=== PATIENT | female | born 1940 | race American Indian/Alaskan Native ===

== ENCOUNTER 2016-09-24 22:48 | Emergency (ER) | payer MEDICARE ==
[2016-09-24 23:06] VITALS: BP 132/75
[2016-09-24 23:52] LABS: Hematocrit 38.3 % (30.3-42.9); Hemoglobin 12.7 gm/dl (10.1-14.3); Mean Corpuscular HGB Conc 33 % (30-34); Mean Corpuscular Hemoglobin 29 pg (28-32); Mean Corpuscular Volume 87 fl (79-97); Platelet Count 226 K/mm3 (140-440); Red Blood Count 4.39 M/mm3 (3.65-5.03); White Blood Count 7.4 K/mm3 (4.5-11.0)
[2016-09-25 00:13] LABS: Alanine Aminotransferase 13 units/L (7-56); Alkaline Phosphatase 98 units/L (35-129); Anion Gap 19 mmol/L; Blood Urea Nitrogen 12 mg/dL (7-17); Calcium 9.5 mg/dL (8.4-10.2); Carbon Dioxide 22 mmol/L (22-30); Chloride 99.7 mmol/L (98-107); Glucose 116 mg/dL (65-100); Potassium 4.2 mmol/L (3.6-5.0); Sodium 136 mmol/L (137-145)
--- NOTE | 2016-09-28 08:01 | ED Elopement Review ---
ED Pt Elopement review - Results review Lab results: Laboratory Tests 09/24/16 09/24/16 23:31 23:31 WBC 7.4 RBC 4.39 Hgb 12.7 Hct 38.3 MCV 87 MCH 29 MCHC 33 RDW 13.0 L Plt Count 226 Lymph % (Auto) 35.9 H Kenton % (Auto) 9.0 H Eos % (Auto) 3.0 Baso % (Auto) 1.0 Lymph # 2.6 Kenton # 0.7 Eos # 0.2 Baso # 0.1 Seg Neutrophils % 51.1 Seg Neutrophils # 3.8 Sodium 136 L Potassium 4.2 Chloride 99.7 Carbon Dioxide 22 Anion Gap 19 BUN 12 Creatinine 0.6 L Estimated GFR > 60 BUN/Creatinine Ratio 20.00 Glucose 116 H Calcium 9.5 Total Bilirubin 0.30 AST 23 ALT 13 Alkaline Phosphatase 98 Troponin T < 0.010 Total Protein 8.0 Albumin 4.0 Albumin/Globulin Ratio 1.0 - Call Back decision Pt Call Back Decision: No action required
== END 2016-09-25 00:22 | disposition left against medical advice (07) ==
LOC: ED 22:48
DX: M54.2 Cervicalgia (principal); M79.601 Pain in right arm; M79.604 Pain in right leg; Z53.21 Procedure and treatment not carried out due to patient leaving prior to being seen by health care provider
CPT/HCPCS: 36415; 80053; 84484; 85025; 93005; 93010

== ENCOUNTER 2017-12-29 20:43 | Emergency (ER) | payer MEDICARE ==
[2017-12-29 21:10] VITALS: BP 150/63
--- NOTE | 2017-12-29 22:28 | Emergency Department Report ---
ED Extremity Problem HPI - General Chief complaint: Extremity Problem,Nontraumatic Stated complaint: LT KNEE PAIN Time Seen by Provider: 12/29/17 22:27 Source: patient Mode of arrival: Ambulatory Limitations: No Limitations - History of Present Illness Initial comments: [age] after [place] female born him with her daughter for complaint of left knee pain that radiates up into her thigh and buttocks. Patient denies any trauma. Patient reports that she was seen at urgent care was given pain medicine for neuropathy which she reports has not helped with the pain. This isn't gone on for the past month. Patient reports that she's been taking ibuprofen 600 mg and another medication that sounds like Neurontin 200 mg twice a day. Patient denies any numbness or coldness to her toes or feet. She reports that the pain is achy. He reports that the mother doesn't want to get out the bed secondary to pain. Daughter is concerned that she's lost 10 pounds. MD Complaint: extremity pain Severity scale (0 -10): 8 - Related Data Previous Rx's Medication Instructions Recorded Last Taken Type traMADol [Ultram 50 MG tab] 50 mg PO Q6HR #12 tablet 12/29/17 Unknown Rx Allergies Allergy/AdvReac Type Severity Reaction Status Date / Time No Known Allergies Allergy Unverified 05/23/15 07:26 ED Review of Systems ROS: Stated complaint: LT KNEE PAIN Other details as noted in HPI Comment: All other systems reviewed and negative Musculoskeletal: arthralgia (left knee posterior pain) ED Past Medical Hx - Past Medical History Hx Hypertension: Yes Hx Diabetes: Yes - Surgical History Past Surgical History?: No - Social History Smoking Status: Never Smoker Substance Use Type: None - Medications Home Medications: Home Medications Medication Instructions Recorded Confirmed Last Taken Type traMADol [Ultram 50 MG tab] 50 mg PO Q6HR #12 tablet 12/29/17 Unknown Rx ED Physical Exam - General Limitations: No Limitations General appearance: alert, in no apparent distress - Head Head exam: Present: atraumatic, normocephalic - Eye Eye exam: Present: EOMI - ENT ENT exam: Present: mucous membranes moist - Neck Neck exam: Present: full ROM - Expanded Lower Extremity Exam Left Hip exam: Present: normal inspection, full ROM. Absent: tenderness, swelling Knee exam: Present: normal inspection, full ROM. Absent: tenderness, swelling, abrasion, ecchymosis, deformity, crepidus, erythema, effusion, pain/laxity with valgus, pain/laxity with varus Lower Leg exam: Present: normal inspection, full ROM. Absent: tenderness, swelling, palpable cord, Shonna's sign Ankle exam: Present: normal inspection, full ROM. Absent: tenderness, swelling Neuro vascular tendon exam: Present: no vascular compromise. Absent: abnormal cap refill - Neurological Exam Neurological exam: Present: alert, oriented X3 - Psychiatric Psychiatric exam: Present: normal affect, normal mood - Skin Skin exam: Present: warm, dry, intact, normal color. Absent: rash ED Course Vital Signs 12/29/17 12/29/17 12/29/17 20:59 21:06 22:52 Temperature 98.6 F 98.6 F Pulse Rate 73 73 Respiratory 16 16 18 Rate Blood Pressure 150/63 Blood Pressure 150/83 [Right] O2 Sat by Pulse 100 100 Oximetry ED Medical Decision Making - Radiology Data Radiology results: report reviewed, image reviewed FINAL REPORT EXAM: XR HIP 2-3V LT HISTORY: left lef pain TECHNIQUE: Frontal view of the pelvis and both hips and frog-lateral view left hip Comparison: None FINDINGS: There is no evidence of fracture or subluxation. The hip joints appear to be maintained. There is degenerative change of the lower lumbar spine and of the pubic symphysis. The soft tissues are unremarkable. IMPRESSION: 1. No evidence of fracture or subluxation. Transcribed By: ED Dictated By: MERVIN ALMAGUER MD Electronically Authenticated By: MERVIN ALMAGUER MD Signed Date/Time: 12/29/172321 DD/ 21 TD/TT: 12/29/172321 - Medical Decision Making Patient has been evaluated by this provider fast track. Trauma at all 50 mg given for pain management. X-ray of the left knee and left hip just has shows some degenerative changes. We'll discharge patient on trauma at all and have her follow back up with her primary care provider. Critical care attestation.: If time is entered above; I have spent that time in minutes in the direct care of this critically ill patient, excluding procedure time. ED Disposition Clinical Impression: Posterior left knee pain Disposition: DC-01 TO HOME OR SELFCARE Is pt being admited?: No Does the pt Need Aspirin: No Condition: Stable Instructions: Lumbar Radiculopathy (ED) Additional Instructions: Take pain medication as needed. Please follow up with her primary care provider for further evaluation. All x-rays were negative. Prescriptions: traMADol [Ultram 50 MG tab] 50 mg PO Q6HR #12 tablet Referrals: PRIMARY CARE,MD [Primary Care Provider] - 3-5 Days Your, Provider [Other] - 3-5 Days Forms: Accompanied Note
[2017-12-29] MEDS ORDERED: ULTRAM PO ONE (22:47)
--- NOTE | 2017-12-29 23:22 | XRay Report ---
FINAL REPORT EXAM: XR HIP 2-3V LT HISTORY: left lef pain TECHNIQUE: Frontal view of the pelvis and both hips and frog-lateral view left hip Comparison: None FINDINGS: There is no evidence of fracture or subluxation. The hip joints appear to be maintained. There is degenerative change of the lower lumbar spine and of the pubic symphysis. The soft tissues are unremarkable. IMPRESSION: 1. No evidence of fracture or subluxation.
--- NOTE | 2017-12-29 23:26 | XRay Report ---
FINAL REPORT EXAM: XR KNEE 1-2V LT HISTORY: knee pain hx/o uk cyts TECHNIQUE: Frontal and lateral views left knee Comparison: None FINDINGS: There is no evidence of fracture or subluxation. There is degenerative change of the patellofemoral joint with joint space loss and osteophyte formation. The soft tissues are notable for atherosclerotic vascular calcification. IMPRESSION: 1. Evidence of degenerative change patellofemoral joint. 2. Atherosclerotic vascular calcification. 3. No evidence of fracture or subluxation.
== END 2017-12-29 23:47 | disposition home or self-care (01) ==
LOC: ED 20:43
DX: M25.562 Pain in left knee (principal); I10 Essential (primary) hypertension; E11.9 Type 2 diabetes mellitus without complications
CPT/HCPCS: 99283

== ENCOUNTER 2021-07-08 19:52 | Emergency (ER) | payer MEDICARE ==
[2021-07-08 20:35] VITALS: BP 131/86
--- NOTE | 2021-07-08 21:27 | Cat Scan Report ---
CT head/brain wo con INDICATION / CLINICAL INFORMATION: 81 years Female; fall, head injury. TECHNIQUE: Routine CT head without contrast. All CT scans at this location are performed using CT dos e reduction for ALARA by means of automated exposure control. COMPARISON: None. FINDINGS: BRAIN / INTRACRANIAL CONTENTS: No acute hemorrhage, mass effect, midline shift, hydrocephalus, or acu te, large territorial infarct. Mild, diffuse cerebral and cerebellar atrophy. Atrophy may be greatest in the parietal lobes. Moderat e to marked degree of hippocampal atrophy suggested bilaterally. There are mild areas of decreased attenuation in the white matter of the cerebral hemispheres. These are nonspecific findings and may be related to microangiopathy (hypertension, diabetes, atheroscleros is), given the patient's age. It might be difficult to evaluate for small areas of ischemia without d iffusion imaging by MRI. CRANIOCERVICAL JUNCTION: No significant abnormality. ORBITS: No significant abnormality of visualized orbits. SINUSES / MASTOIDS: There is partial opacification of the right sphenoid sinus with an air-fluid leve l noted. Mild mucosal thickening in the ethmoids. ADDITIONAL FINDINGS: Poor dentition noted. Atherosclerotic disease is seen in the anterior circulation. IMPRESSION: 1. No focal mass, hemorrhage, hydrocephalus, or acute, large territorial infarct. 2. Sinus disease, as described above. Signer Name: Riley Connors MD, III Signed: 07/08/2021 9:23 PM Workstation Name: [email or web address]
--- NOTE | 2021-07-08 21:31 | Cat Scan Report ---
CT cervical spine wo con INDICATION / CLINICAL INFORMATION: 81 years Female; fall, head injury, dementia. TECHNIQUE: Axial CT images of the cervical spine were obtained. Sagittal and coronal reformatted images were pr oduced. All CT scans at this location are performed using CT dose reduction for ALARA by means of aut omated exposure control. COMPARISON: None available. FINDINGS: POST-SURGICAL CHANGES: None. ALIGNMENT: No significant abnormality. VERTEBRAE: No signs of fracture. Vertebral bodies are grossly normal in height throughout. Osseous foraminal narrowing seen on the left at C3-4, C4-5, and C5-6 related uncinate facet hypertrop hy. Similar findings on the right at C3-4, C4-5, and C5-6. Mild to moderate facet hypertrophy seen at multiple levels. Most marked finding appears be on the rig ht at C4-5 and on the left at C3-4. INTRAVERTEBRAL DISCS: Disc spaces are fairly well-maintained throughout without significant canal shilo nosis. PARASPINAL SOFT TISSUES: No significant abnormality. ADDITIONAL FINDINGS: Air-fluid level seen in the partially opacified right sphenoid sinus. Mild atherosclerotic disease seen in the internal carotid arteries. IMPRESSION: 1. No signs of acute bony trauma to the cervical spine. Signer Name: Riley Connors MD, III Signed: 07/08/2021 9:27 PM Workstation Name: [id number]
--- NOTE | 2021-07-08 21:57 | Emergency Department Report ---
ED Head Trauma HPI - General Chief complaint: Head Injury Stated complaint: FALL/HEAD PAIN AND RT KNEE PAIN Source: patient, family Mode of arrival: Ambulatory Limitations: No Limitations - History of Present Illness Initial comments: 81-year-old female accompanied by daughter presents to the ED after slip and fall down stairs. Patient has a hematoma to the back of her head. States that she slipped and failed. She is alert and oriented to self and place. States that this is her normal mental status. Patient denies any pain at present. Daughter denies any nausea vomiting at present. No abnormal behavior noted. Patient ambulatory without any difficulty. - Related Data Previous Rx's Medication Instructions Recorded Last Taken Type traMADoL [Ultram 50 MG tab] 50 mg PO Q6HR #12 tablet 12/29/17 Unknown Rx Allergies/Adverse reactions: Allergies Allergy/AdvReac Type Severity Reaction Status Date / Time No Known Allergies Allergy Unverified 05/23/15 07:26 ED Review of Systems ROS: Stated complaint: FALL/HEAD PAIN AND RT KNEE PAIN Other details as noted in HPI Constitutional: denies: chills, fever Eyes: denies: eye pain, eye discharge, vision change ENT: denies: ear pain, throat pain Respiratory: denies: cough, shortness of breath, wheezing Cardiovascular: denies: chest pain, palpitations Endocrine: no symptoms reported Gastrointestinal: denies: abdominal pain, nausea, diarrhea Genitourinary: denies: urgency, dysuria, discharge Musculoskeletal: denies: back pain, joint swelling, arthralgia Skin: denies: rash, lesions Neurological: denies: headache, weakness, paresthesias Psychiatric: denies: anxiety, depression Hematological/Lymphatic: denies: easy bleeding, easy bruising ED Past Medical Hx - Past Medical History Previous Medical History?: Yes Hx Hypertension: Yes Hx Diabetes: Yes Additional medical history: Alzeimer's - Social History Smoking Status: Never Smoker Substance Use Type: None - Medications Home Medications: Home Medications Medication Instructions Recorded Confirmed Last Taken Type traMADoL [Ultram 50 MG tab] 50 mg PO Q6HR #12 tablet 12/29/17 Unknown Rx ED Physical Exam - General Limitations: No Limitations General appearance: alert, in no apparent distress - Head Head exam: Present: atraumatic, normocephalic - Eye Eye exam: Present: normal appearance - ENT ENT exam: Present: mucous membranes moist - Neck Neck exam: Present: normal inspection - Respiratory Respiratory exam: Present: normal lung sounds bilaterally. Absent: respiratory distress - Cardiovascular Cardiovascular Exam: Present: regular rate, normal rhythm. Absent: systolic murmur, diastolic murmur, rubs, gallop - GI/Abdominal GI/Abdominal exam: Present: soft, normal bowel sounds - Extremities Exam Extremities exam: Present: normal inspection - Back Exam Back exam: Present: normal inspection - Neurological Exam Neurological exam: Present: alert, oriented X3 - Psychiatric Psychiatric exam: Present: normal affect, normal mood - Skin Skin exam: Present: warm, dry, intact, normal color. Absent: rash ED Course Vital Signs 07/08/21 20:32 Temperature 97.5 F L Pulse Rate 79 Respiratory 15 Rate Blood Pressure 131/86 [Right] O2 Sat by Pulse 98 Oximetry - Radiology Data [facility] [address] [place] [address] Cat Scan Report Signed Patient: ANGEL CARO MR#: [id number] 79 : 1940 Acct:[id number] Age/Sex: 81 / F ADM Date: 07/08/21 Loc: ED Attending Dr: Ordering Physician: JOSETTE SORIA DO Date of Service: 07/08/21 Procedure(s): CT head/brain wo con Accession Number(s): [id number] cc: JOSETTE SORIA DO CT head/brain wo con INDICATION / CLINICAL INFORMATION: 81 years Female; fall, head injury. TECHNIQUE: Routine CT head without contrast. All CT scans at this location are performed using CT dose reduction for ALARA by means of automated exposure control. COMPARISON: None. FINDINGS: BRAIN / INTRACRANIAL CONTENTS: No acute hemorrhage, mass effect, midline shift, hydrocephalus, or acute, large territorial infarct. Mild, diffuse cerebral and cerebellar atrophy. Atrophy may be greatest in the parietal lobes. Moderate to marked degree of hippocampal atrophy suggested bilaterally. There are mild areas of decreased attenuation in the white matter of the cerebral hemispheres. These are nonspecific findings and may be related to microangiopathy (hypertension, diabetes, atherosclerosis), given the patient's age. It might be difficult to evaluate for small areas of ischemia without diffusion imaging by MRI. CRANIOCERVICAL JUNCTION: No significant abnormality. ORBITS: No significant abnormality of visualized orbits. SINUSES / MASTOIDS: There is partial opacification of the right sphenoid sinus with an air-fluid level noted. Mild mucosal thickening in the ethmoids. ADDITIONAL FINDINGS: Poor dentition noted. Atherosclerotic disease is seen in the anterior circulation. IMPRESSION: 1. No focal mass, hemorrhage, hydrocephalus, or acute, large territorial infarct. 2. Sinus disease, as described above. Signer Name: Riley Connors MD, III Signed: 07/08/2021 9:23 PM Workstation Name: [email or web address] Transcribed By: HR Dictated By: Riley Connors MD Electronically Authenticated By: Riley Connors MD Signed Date/Time: 07/08/212122 [facility] [address] [place] [address] Cat Scan Report Signed Patient: ANGEL CARO MR#: [id number] 79 : 1940 Acct:[id number] Age/Sex: 81 / F ADM Date: 07/08/21 Loc: ED Attending Dr: Ordering Physician: JOSETTE SORIA DO Date of Service: 07/08/21 Procedure(s): CT cervical spine wo con Accession Number(s): [id number] cc: JOSETTE SORIA DO CT cervical spine wo con INDICATION / CLINICAL INFORMATION: 81 years Female; fall, head injury, dementia. TECHNIQUE: Axial CT images of the cervical spine were obtained. Sagittal and coronal reformatted images were produced. All CT scans at this location are performed using CT dose reduction for ALARA by means of automated exposure control. COMPARISON: None available. FINDINGS: POST-SURGICAL CHANGES: None. ALIGNMENT: No significant abnormality. VERTEBRAE: No signs of fracture. Vertebral bodies are grossly normal in height throughout. Osseous foraminal narrowing seen on the left at C3-4, C4-5, and C5-6 related uncinate facet hypertrophy. Similar findings on the right at C3-4, C4-5, and C5-6. Mild to moderate facet hypertrophy seen at multiple levels. Most marked finding appears be on the right at C4-5 and on the left at C3-4. INTRAVERTEBRAL DISCS: Disc spaces are fairly well-maintained throughout without significant canal stenosis. PARASPINAL SOFT TISSUES: No significant abnormality. ADDITIONAL FINDINGS: Air-fluid level seen in the partially opacified right sphenoid sinus. Mild atherosclerotic disease seen in the internal carotid arteries. IMPRESSION: 1. No signs of acute bony trauma to the cervical spine. Signer Name: Riley Connors MD, III Signed: 07/08/2021 9:27 PM Workstation Name: [email or web address] Transcribed By: HR Dictated By: Riley Connors MD Electronically Authenticated By: Riley Connors MD Signed Date/Time: 07/08/212126 DD/ 22 TD/TT: Print Cancel - Medical Decision Making 81-year-old female accompanied by daughter presents to the ED after slip and fall down stairs. Patient has a hematoma to the back of her head. States that she slipped and failed. She is alert and oriented to self and place. States that this is her normal mental status. Patient denies any pain at present. Daughter denies any nausea vomiting at present. No abnormal behavior noted. Patient ambulatory without any difficulty. - NEXUS Criteria Focal neurological deficit present: No Midline spinal tenderness present: No Altered level of consciousness: No Intoxication present: No Distracting injury present: No NEXUS results: C-Spine can be cleared clinically by these results. Imaging is not required. Critical care attestation.: If time is entered above; I have spent that time in minutes in the direct care of this critically ill patient, excluding procedure time. ED Disposition Clinical Impression: Hematoma and contusion Fall Qualifiers: Encounter type: initial encounter Qualified Code(s): W19.XXXA - Unspecified fall, initial encounter Disposition: HOME / SELF CARE / HOMELESS Is pt being admited?: No Does the pt Need Aspirin: No Condition: Stable Instructions: Facial or Scalp Contusion, [id number] Additional Instructions: Return to ED for any worsening behavior, nausea and vomiting or worsening headache Follow-up with primary care doctor May take Tylenol as needed for pain Referrals: NEHA DINH II, MD [Staff Physician] - 3-5 Days
== END 2021-07-08 22:19 | disposition home or self-care (01) ==
LOC: ED 19:52
DX: S00.83XA Contusion of other part of head, initial encounter (principal); I10 Essential (primary) hypertension; E11.9 Type 2 diabetes mellitus without complications; W10.8XXA Fall (on) (from) other stairs and steps, initial encounter; Y93.89 Activity, other specified; Y92.89 Other specified places as the place of occurrence of the external cause; Y99.8 Other external cause status
CPT/HCPCS: 70450; 72125; 99283